=== PATIENT | female | born 1960 | race Caucasian/White ===

== ENCOUNTER → 2017-01-10 | Day surgery (SDC) | payer OTHER ==
[~2017-01-10] VITALS: Ht 157.5 cm; Wt 44.2 kg
[2017-01-10 08:01] LABS: HCT 39.7 % (37.0-47.0); HGB 13.4 g/dl (12.5-16.0); MCH 29.5 pg (25.0-31.0); MCHC 33.8 g/dL (32.0-36.0); MCV 87.3 fL (78.0-100.0); MPV 11.5 fL (6.0-9.5); RBC 4.55 M/uL (4.20-5.40); RDW 12.9 % (11.5-14.0); WBC 5.6 K/uL (4.0-10.5)
[2017-01-10 08:19] LABS: ALBUMIN 4.3 g/dL (3.5-5.0); BILIRUBIN - TOTAL 0.5 mg/dL (0.1-1.0); CREATININE 0.9 mg/dL (0.5-1.0); POTASSIUM 4.1 mmol/L (3.5-5.1); TOTAL PROTEIN 7.3 g/dL (6.4-8.3)
== END | disposition home or self-care (01) ==
LOC: FAS 07:51
PROVIDERS: Surgery
DX: C18.9 Malignant neoplasm of colon, unspecified (principal); K29.50 Unspecified chronic gastritis without bleeding; K21.9 Gastro-esophageal reflux disease without esophagitis; K58.9 Irritable bowel syndrome, unspecified; K80.20 Calculus of gallbladder without cholecystitis without obstruction; M19.90 Unspecified osteoarthritis, unspecified site; G89.29 Other chronic pain; M54.5 Low back pain; G47.00 Insomnia, unspecified; M54.16 Radiculopathy, lumbar region; M46.1 Sacroiliitis, not elsewhere classified; M75.81 Other shoulder lesions, right shoulder; Z88.5 Allergy status to narcotic agent; Z98.890 Other specified postprocedural states
CPT/HCPCS: 36415; 80053; 82378; J2704

== ENCOUNTER → 2020-05-26 | Day surgery (SDC) | payer MEDICARE, OTHER ==
[~2020-05-26] MED LIST: BENADRYL25 MG PO; CEFDINIR300 MG PO; KEFLEX250 MG PO; MEDROL 4MG DOSEP4 MG PO; PREDNISONE 20MG20 MG PO; TAMIFLU 75MG CA75 MG PO; VENTOLIN HFA IN18 GM INH; ZOFRAN8 MG PO
[2020-05-26 09:03] LABS: HCT 41.3 % (37.0-47.0); HGB 13.5 g/dl (12.5-16.0); MCH 29.9 pg (25.0-31.0); MCHC 32.7 g/dL (32.0-36.0); MCV 91.6 fL (78.0-100.0); RBC 4.51 M/uL (4.20-5.40); RDW 12.4 % (11.5-14.0); WBC 4.6 K/uL (4.0-10.5)
[2020-05-26 09:13] LABS: ALBUMIN 3.5 g/dL (3.4-5.0); BILIRUBIN - TOTAL 0.4 mg/dL (0.2-1.0); BUN/CREAT RATIO (CALC) 9.4 RATIO; CREATININE 0.96 mg/dL (0.51-0.95); GLOBULIN (CALCULATION) 3.1 g/dL; POTASSIUM 3.7 mmol/L (3.5-5.1); TOTAL PROTEIN 6.6 g/dL (6.4-8.2)
== END | disposition home or self-care (01) ==
LOC: FAS 08:15
PROVIDERS: Surgery
DX: Z12.11 Encounter for screening for malignant neoplasm of colon (principal); F41.9 Anxiety disorder, unspecified; K21.9 Gastro-esophageal reflux disease without esophagitis; G47.00 Insomnia, unspecified; M54.16 Radiculopathy, lumbar region; Z85.038 Personal history of other malignant neoplasm of large intestine; Z86.010 Personal history of colon polyps; Z79.899 Other long term (current) drug therapy; Z88.5 Allergy status to narcotic agent; Z90.49 Acquired absence of other specified parts of digestive tract
CPT/HCPCS: G0105; 36415; 80053; J2704; J7120

== ENCOUNTER 2020-11-13 12:50 | Emergency (ER) | payer MEDICARE, OTHER ==
[~2020-11-13 12:50] MED LIST changes: -KEFLEX250 MG PO
[2020-11-13] MEDS ORDERED: KEFLEX250 MG PO (14:01)
[2020-11-13] MEDS ORDERED: PREDNISONE 20MG20 MG PO (14:01)
== END 2020-11-13 14:22 | disposition home or self-care (01) ==
LOC: FER 12:50
DX: T78.40XA Allergy, unspecified, initial encounter (principal); L03.213 Periorbital cellulitis; Z85.038 Personal history of other malignant neoplasm of large intestine
CPT/HCPCS: 99282; J7512

== ENCOUNTER 2021-05-15 10:26 | Emergency (ER) | payer MEDICARE ==
[~2021-05-15 10:26] MED LIST changes: +KEFLEX250 MG PO
== END 2021-05-15 13:25 | disposition home or self-care (01) ==
LOC: FER 10:26
DX: J02.8 Acute pharyngitis due to other specified organisms (principal); B97.89 Other viral agents as the cause of diseases classified elsewhere; Z88.5 Allergy status to narcotic agent
CPT/HCPCS: 99282

== ENCOUNTER → 2021-07-08 | Day surgery (SDC) | payer MEDICARE, OTHER ==
[~2021-07-08] VITALS: Ht 157.5 cm; Wt 49.4 kg
[2021-07-08 08:04] LABS: HCT 40.4 % (37.0-47.0); HGB 13.5 g/dl (12.5-16.0); MCH 30.1 pg (25.0-31.0); MCHC 33.4 g/dL (32.0-36.0); RBC 4.49 M/uL (4.20-5.40); WBC 5.7 K/uL (4.0-10.5)
[2021-07-08 08:29] LABS: ALBUMIN 3.7 g/dL (3.4-5.0); BILIRUBIN - TOTAL 0.6 mg/dL (0.2-1.0); BUN/CREAT RATIO (CALC) 10.5 RATIO; CREATININE 0.95 mg/dL (0.51-0.95); POTASSIUM 4.2 mmol/L (3.5-5.1); TOTAL PROTEIN 6.7 g/dL (6.4-8.2)
== END | disposition home or self-care (01) ==
LOC: FAS 06-21 08:30
PROVIDERS: Surgery
DX: Z12.11 Encounter for screening for malignant neoplasm of colon (principal); Z85.038 Personal history of other malignant neoplasm of large intestine; Z88.5 Allergy status to narcotic agent; Z90.49 Acquired absence of other specified parts of digestive tract
CPT/HCPCS: 36415; 80053; 82378; J2704; J7120

== ENCOUNTER 2021-12-14 21:14 | Emergency (ER) | payer MEDICARE, OTHER ==
[2021-12-14 21:59] LABS: BASOPHIL 0.3 % (0-2); EOSINOPHIL 0.2 % (0-5); HGB 13.5 g/dl (12.5-16.0); MCH 30.1 pg (25.0-31.0); MCHC 33.8 g/dL (32.0-36.0); MCV 89.1 fL (78.0-100.0); MONOCYTE 3.8 % (0-12); NEUTROPHIL 86.2 % (41-80); NRBC 0; PLT 203 K/uL (150-400); RBC 4.49 M/uL (4.20-5.40); RDW 12.6 % (11.5-14.0); WBC 11.8 K/uL (4.0-10.5)
[2021-12-14 22:03] LABS: INR 0.99 (0.9-1.2); PROTHROMBIN TIME 12.8 SECONDS (11.9-13.9); PTT 26.5 SECONDS (24.9-34.6)
[2021-12-14 22:11] LABS: BUN/CREAT RATIO (CALC) 12.1 RATIO; CREATININE 0.99 mg/dL (0.51-0.95); POTASSIUM 4.1 mmol/L (3.5-5.1)
[2021-12-14 23:46] LABS: ALBUMIN 3.4 g/dL (3.4-5.0); BILIRUBIN - TOTAL 0.7 mg/dL (0.2-1.0); BUN/CREAT RATIO (CALC) 12.5 RATIO; CREATININE 0.96 mg/dL (0.51-0.95); GLOBULIN (CALCULATION) 2.6 g/dL; POTASSIUM 3.7 mmol/L (3.5-5.1)
[2021-12-14 23:58] LABS: CORONAVIRUS 2019 SARS-COV-2 NEGATIVE (NEGATIVE); INFLUENZA A NAA NEGATIVE (NEGATIVE)
[2021-12-15 00:40] LABS: BILIRUBIN NEGATIVE (NEGATIVE); BLOOD 1+ Ery/uL (NEGATIVE); CLARITY CLEAR (CLEAR); COLOR YELLOW (YELLOW); GLUCOSE (U) NORMAL (NORMAL); LEUKOCYTES 1+ Leu/uL (NEGATIVE); NITRITE NEGATIVE (NEGATIVE); PROTEIN NEGATIVE (NEGATIVE); SPECIFIC GRAVITY 1.015 (1.001-1.030)
[2021-12-15 01:00] LABS: BACTERIA 1+
[2021-12-15] MEDS ORDERED: BACTRIM DS TAB1 EACH PO (01:28)
[2021-12-15] MEDS ORDERED: PHENERGAN25 M1 PO (01:28)
[2021-12-15] MEDS ORDERED: ONDANSETRON ODT4 MG PO (01:28)
--- NOTE | 2021-12-18 11:08 | NUR ---
CALL RECEIVED FROM [facility] SURGERY DEPARTMENT. REQUESTED PAST OPERATIVE NOTES AND PATHOLOGY REPORT. UNABLE TO FIND THESE DOCUMENTS IN THE PATIENT'S CHART. CALLED FLOOR THAT PATIENT IS CURRENTLY ADMITTED ON AT [facility] AND INFORMED PRIMARY RN. SHE WILL COMMUNICATE THIS TO SURGERY DEPARTMENT.
== END 2021-12-15 01:54 | disposition home or self-care (01) ==
LOC: FER 21:14
PROVIDERS: Internal Medicine
DX: R10.30 Lower abdominal pain, unspecified (principal); R11.0 Nausea; Z20.822 Contact with and (suspected) exposure to COVID-19; Z28.310 Unvaccinated for COVID-19; Z88.5 Allergy status to narcotic agent
CPT/HCPCS: 36415; 70450; 71045; 80048; 80053; 81001; 83605; 84484; 85025; 85610; 85730; 87088; 93005; J0696; J1170; J2060; U0002